=== PATIENT | female | born 1990 | race Caucasian/White ===

== ENCOUNTER 2016-08-30 02:30 | Emergency (ER) | payer OTHER ==
[~2016-08-30] VITALS: Ht 152.4 cm; Wt 52.6 kg
[2016-08-30 02:41] VITALS: BP 127/63
--- NOTE | 2016-08-30 05:24 | NUR ---
PATIENT AMBULATED TO ER BED 3.
--- NOTE | 2016-08-30 05:33 | NUR ---
25Y/F PATIENT PRESENTS TO ED WITH WPIGASTRIC PIAN X 4 DAYS . PT STATES EPIGASTRIC PAIN WITH N/V/D, ALSO STATES FEVER 3 DAYS; SKIN IS PINK/WARM/DRY; AAOX4 WITH EVEN AND STEADY GAIT; LUNGS CLEAR BL; HR EVEN AND REGULAR; PT DENIES ANY FEVER, CP, SOB, OR COUGH AT THIS TIME; PATIENT STATES PAIN OF 8/10 AT THIS TIME; VSS; PATIENT POSITIONED FOR COMFORT; HOB ELEVATED; BEDRAILS UP X2; BED DOWN. ER MD MADE AWARE OF PT STATUS.
--- NOTE | 2016-08-30 05:40 | NUR ---
PATIENT BEING EVALUATED BY DR. LENTZ.
[2016-08-30] MEDS ORDERED: NACL 0.9% 1,000 ML IV ONE (06:35)
[2016-08-30] MEDS ORDERED: LEVOFLOXACIN 500 MG/D5W PREMIX 100 ML IV ONE (06:35)
[2016-08-30] MEDS ORDERED: ONDANSETRON 4 MG/2 ML VIAL IVP ONE (06:45)
--- NOTE | 2016-08-30 07:13 | NUR ---
Pt report given to SHAD ISLAS. Transfer of care at this time.
[2016-08-30 07:16] LABS: HEMOGLOBIN 12.9 g/dL (12.0-16.0); MEAN CORPUSCULAR HEMOGLOBIN 28 pg (27-31); MEAN CORPUSCULAR HGB CONC 33 g/dL (33-37); MEAN CORPUSCULAR VOLUME 84 fL (80-94); PLATELET COUNT (AUTO) 220 K/uL (140-450); RED BLOOD CELL COUNT(AUTO) 4.62 MIL/uL (4.20-5.40); RED CELL DISTRIBUTION WIDTH 13.9 % (11.6-13.7); WHITE BLOOD COUNT (AUTO) 9.5 K/uL (4.8-10.8)
[2016-08-30 07:27] LABS: ANION GAP 13.4 (8-16); CALCIUM 8.5 mg/dL (8.5-10.1); CREATININE 0.8 mg/dL (0.6-1.3); POTASSIUM 3.4 mmol/L (3.5-5.1)
[2016-08-30 07:32] LABS: BAND % (MANUAL) 9 % (0-8); BASOPHILS % (MANUAL) 0 % (0-2); EOSINOPHILS % (MANUAL) 1 % (0-4); LYMPHOCYTES % (MANUAL) 9 % (20-46); MONOCYTES % (MANUAL) 5 % (5-12); NEUTROPHILS % (MANUAL) 76 (43-65); PLATELET ESTIMATE ADEQUATE
[2016-08-30 07:33] LABS: ALBUMIN 3.8 g/dL (3.4-5.0); TOTAL BILIRUBIN 0.5 mg/dL (0.0-1.0); TOTAL PROTEIN, SERUM 8.2 g/dL (6.4-8.2)
--- NOTE | 2016-08-30 08:31 | NUR ---
AAO PT RESTING COMFORTABLY AT THIS TIME, NO C/O N/V, 600MG MOTRIN GIVEN PO TEMPORAL TEMP 100.4, WILL CONTINUE TO MONITOR
[2016-08-30] MEDS ORDERED: IBUPROFEN 600 MG TAB ONE (08:34)
[2016-08-30 08:45] VITALS: BP 118/68
--- NOTE | 2016-08-30 08:45 | NUR ---
Patient discharged with v/s stable. Written and verbal after care instructions given and explained.Patient alert, oriented and verbalized understanding of instructions. Ambulatory with steady gait. All questions addressed prior to discharge. ID band removed. Patient advised to follow up with PMD. Rx of ZOFRAN, PYRIDIUM, CIPRO given. Patient educated on indication of medication including possible reaction and side effects. Opportunity to ask questions provided and answered.
== END 2016-08-30 08:45 | disposition home or self-care (01) ==
LOC: MED 02:30
DX: N39.0 Urinary tract infection, site not specified (principal); R11.2 Nausea with vomiting, unspecified; R10.13 Epigastric pain; R19.7 Diarrhea, unspecified
CPT/HCPCS: 36415; 80053; 82150; 83690; 85025; 96365; 96375; 99284; J1956; J2405; J7030

== ENCOUNTER 2019-10-12 11:19 | Emergency (ER) | payer SELFPAY ==
[~2019-10-12] VITALS: Ht 154.9 cm; Wt 60.3 kg
[2019-10-12 11:27] VITALS: BP 131/66
--- NOTE | 2019-10-12 11:31 | NUR ---
AMBULATED TO BED 12
--- NOTE | 2019-10-12 11:37 | NUR ---
RECEIVED A 28/F FROM TRIAGE WITH A COMPLAINT OF PERSISTANT MENSTRUAL BLEEDING X 18 DAYS. PT REPORTS SATURATION OF 1 SANITARY [place]/HR. DENIES PAIN/CRAMPING/DISCOMFORT. NO OBVIOUS DISTRESS NOTED. IN BED FOR MSE.
[2019-10-12 12:00] VITALS: BP 131/66
--- NOTE | 2019-10-12 12:00 | NUR ---
Patient discharged with v/s stable. Written and verbal after care instructions given and explained. Patient alert, oriented and verbalized understanding of instructions. Ambulatory with steady gait. All questions addressed prior to discharge. ID band removed. Patient advised to follow up with PMD. Rx of PROVERA, ZOFRAN given. Patient educated on indication of medication including possible reaction and side effects. Opportunity to ask questions provided and answered.
== END 2019-10-12 12:00 | disposition home or self-care (01) ==
LOC: MED 11:19
DX: N93.8 Other specified abnormal uterine and vaginal bleeding (principal)
CPT/HCPCS: 81002; 81025; 99283

== ENCOUNTER 2022-02-13 09:29 | Emergency (ER) | payer OTHER ==
[~2022-02-13] VITALS: Ht 152.4 cm; Wt 61.2 kg
[2022-02-13 09:36] VITALS: BP 115/71
--- NOTE | 2022-02-13 09:39 | NUR ---
PT AMBULATED TO BED 9
--- NOTE | 2022-02-13 09:42 | NUR ---
PT REFUSED TO FILE A WORKER'S COMP
[2022-02-13] MEDS ORDERED: KETOROLAC 60 MG/2 ML VIAL IM ONE (09:45)
[2022-02-13] MEDS ORDERED: IBUP-2213 PO (11:07)
[2022-02-13] MEDS ORDERED: ACET-8905 PO (11:07)
[2022-02-13] MEDS ORDERED: ONDA8TAB87 PO (11:08)
[2022-02-13 11:28] VITALS: BP 105/68
--- NOTE | 2022-02-13 11:32 | NUR ---
Patient discharged with v/s stable. Written and verbal after care instructions given and explained. Patient alert, oriented and verbalized understanding of instructions. Ambulatory with steady gait. All questions addressed prior to discharge. ID band removed. Patient advised to follow up with PMD. Rx of NORCO, MOTRIN, ZOFRAN given. Patient educated on indication of medication including possible reaction and side effects. Opportunity to ask questions provided and answered.
[2022-02-21] MEDS ORDERED: SULF-59 PO (07:37)
== END 2022-02-13 10:55 | disposition home or self-care (01) ==
LOC: MED 09:29
DX: S09.90XA Unspecified injury of head, initial encounter (principal); W18.30XA Fall on same level, unspecified, initial encounter; Y93.89 Activity, other specified; Y92.89 Other specified places as the place of occurrence of the external cause; Y99.8 Other external cause status
CPT/HCPCS: 96372; 99283; J1885

== ENCOUNTER 2022-02-17 10:03 | Emergency (ER) | payer OTHER ==
[~2022-02-17] VITALS: Ht 152.4 cm; Wt 63.2 kg
[~2022-02-17 10:03] MED LIST: ACET-8905 PO; IBUP-2213 PO; ONDA8TAB87 PO
[2022-02-17 10:07] VITALS: BP 114/71
--- NOTE | 2022-02-17 10:12 | NUR ---
PT AMB TO BED 11.
--- NOTE | 2022-02-17 10:14 | NUR ---
31/F WALKED IN C/O HEADACHE X4DAYS ACCOMPANIED BY NAUSE AAND DIARRHEA TODAY. PT WAS SEEN 4 DAYS AGO FOR HEAD INJURY 4 DAYS AGO AND WAS DC. AAO4, AMBULATORY, VITALS STABLE. PMH: KIDNEY STONES
[2022-02-17 10:30] LABS: APPEARANCE,URINE SL CLOUDY (CLEAR); BILIRUBIN,URINE NEGATIVE (NEGATIVE); BLOOD, URINE 3+ (NEGATIVE); COLOR,URINE YELLOW (YELLOW); LEUKOCYTE ESTERASE ,URINE 2+ (NEGATIVE); NITRITE, URINE NEGATIVE (NEGATIVE); UGLUCOSE NEGATIVE (NEGATIVE)
[2022-02-17] MEDS ORDERED: KETOROLAC 15 MG/ML VIAL IM ONE (10:30)
--- NOTE | 2022-02-17 10:40 | NUR ---
URINE COLLECTED AND SENT TO LAB.
[2022-02-17 10:47] LABS: RBC,URINE 11-20 (MOD) /HPF (0-5)
[2022-02-17 12:35] VITALS: BP 116/68
--- NOTE | 2022-02-17 12:35 | NUR ---
Patient discharged with v/s stable. Written and verbal after care instructions given and explained. Patient verbalized understanding. Ambulatory with steady gait. All questions addressed prior to discharge. Advised to follow up with PMD.
== END 2022-02-17 12:35 | disposition home or self-care (01) ==
LOC: MED 10:03
DX: S09.90XA Unspecified injury of head, initial encounter (principal); N20.0 Calculus of kidney; X58.XXXA Exposure to other specified factors, initial encounter; Y93.89 Activity, other specified; Y92.89 Other specified places as the place of occurrence of the external cause; Y99.8 Other external cause status
CPT/HCPCS: 70450; 81001; 81025; 87086; 96372; 99284; J1885

== ENCOUNTER 2022-05-02 06:57 | Emergency (ER) | payer OTHER ==
[~2022-05-02] VITALS: Ht 152.4 cm; Wt 61.2 kg
[~2022-05-02 06:57] MED LIST changes: +SULF-59 PO
[2022-05-02 07:06] VITALS: BP 126/64
--- NOTE | 2022-05-02 07:12 | NUR ---
PT TAKEN TO BED 3
[2022-05-02] MEDS ORDERED: ONDANSETRON 4 MG/2 ML VIAL IVP ONE (07:25)
[2022-05-02] MEDS ORDERED: KETOROLAC 30 MG/ML VIAL IVP ONE (07:25)
[2022-05-02] MEDS ORDERED: NACL 0.9% 1,000 ML IV SCH (07:25)
[2022-05-02 07:53] LABS: BASOPHILS % (AUTO) 0.3 % (0.0-2.0); EOSINOPHILS % (AUTO) 0.4 % (0.0-4.0); HEMATOCRIT 40.6 % (36-48); HEMOGLOBIN 13.7 g/dL (12.0-16.0); LYMPHOCYTES # (AUTO) 1.2 K/uL (2.5-16.5); LYMPHOCYTES % (AUTO) 16.1 % (20.5-51.1); MEAN CORPUSCULAR HEMOGLOBIN 30 pg (27-31); MEAN CORPUSCULAR HGB CONC 34 g/dL (33-37); MEAN CORPUSCULAR VOLUME 88.2 fL (80-94); MONOCYTES # (AUTO) 0.5 K/uL (0.8-1.0); MONOCYTES % (AUTO) 6.8 % (1.7-9.3); NEUTROPHILS # (AUTO) 5.8 K/uL (1.8-7.7); NEUTROPHILS % (AUTO) 76.4 % (42.2-75.2); PLATELET COUNT (AUTO) 235 K/uL (140-450); RED CELL DISTRIBUTION WIDTH 12.8 % (11.6-13.7); WHITE BLOOD COUNT (AUTO) 7.6 K/uL (4.8-10.8)
--- NOTE | 2022-05-02 08:04 | NUR ---
pt in room 3, had ct done, already seen by md, no ac distress noted. pending orders, o2 sat 100% ra, sr up times 2.
[2022-05-02 08:17] LABS: ANION GAP 14.9 (8-16); CARBON DIOXIDE 24.8 mmol/L (21-32); CREATININE 0.8 mg/dL (0.6-1.3); POTASSIUM 3.7 mmol/L (3.5-5.1)
[2022-05-02 08:32] LABS: ALBUMIN 3.9 g/dL (3.4-5.0); TOTAL BILIRUBIN 0.8 mg/dL (0.0-1.0)
[2022-05-02] MEDS ORDERED: ONDANSETRON 4 MG/2 ML VIAL ONE (08:45)
[2022-05-02] MEDS ORDERED: KETOROLAC 30 MG/ML VIAL ONE (08:45)
[2022-05-02] MEDS ORDERED: diphenhydrAMINE 50 MG/ML VIAL ONE (08:55)
[2022-05-02] MEDS ORDERED: diphenhydrAMINE 50 MG/ML VIAL IVP ONE (09:00)
--- NOTE | 2022-05-02 09:30 | NUR ---
PT SLEEPING, NO AC DISTRESS, O2 SAT 99% RA, FELT SOME SOB AND THROAT CLOSING PRIOR GETTIN MEDS, LUNGS CTAB, DR GARY EXAMINED PT, BENADRYL IV GIVEN. FELT BETTER
[2022-05-02 09:38] LABS: BILIRUBIN,URINE NEGATIVE (NEGATIVE); BLOOD, URINE 2+ (NEGATIVE); COLOR,URINE YELLOW (YELLOW); LEUKOCYTE ESTERASE ,URINE TRACE (NEGATIVE); NITRITE, URINE NEGATIVE (NEGATIVE); UGLUCOSE NEGATIVE (NEGATIVE)
[2022-05-02] MEDS ORDERED: CEPH-588 PO (09:46)
[2022-05-02] MEDS ORDERED: HYDR-5080 PO (09:46)
[2022-05-02] MEDS ORDERED: IBUP-2213 PO (09:46)
[2022-05-02] MEDS ORDERED: TAMS0.4C96 PO (09:46)
[2022-05-02 10:00] LABS: APPEARANCE,URINE SLIGHTLY HAZY (CLEAR)
--- NOTE | 2022-05-02 10:00 | NUR ---
PT SLEEPING, NO SOB, NO COUGH, NO THROAT CLOSING SENSATION, O2 SAT 99% RA, SR UP TIMES 2
[2022-05-02 10:03] LABS: RBC,URINE 11-20 (MOD) /HPF (0-5)
[2022-05-02 10:51] VITALS: BP 118/76
== END 2022-05-02 10:49 | disposition home or self-care (01) ==
LOC: MED 06:57
DX: N20.1 Calculus of ureter (principal); N83.201 Unspecified ovarian cyst, right side; N23 Unspecified renal colic; Z79.899 Other long term (current) drug therapy; Z79.891 Long term (current) use of opiate analgesic; Z79.1 Long term (current) use of non-steroidal anti-inflammatories (NSAID); Z79.2 Long term (current) use of antibiotics
CPT/HCPCS: 36415; 74176; 80053; 81001; 81025; 83605; 85025; 87040; 87086; 96361; 96374; 96375; 99285; J1200; J1885; J2405; J7030